=== PATIENT | male | born 1965 | race African-American/Black ===

== ENCOUNTER 2016-07-15 12:33 | Emergency (ER) | payer OTHER ==
[~2016-07-15] VITALS: Ht 188 cm; Wt 110.2 kg
[2016-07-15 13:18] LABS: BASOPHIL COUNT 0.1 K/uL (0-0.1); EOSINOPHIL (%) 0.3 % (0-5); HEMATOCRIT 48.1 % (38.0-50.0); IMMATURE GRANULOCYTE (%) 0.5 % (0.0-0.7); IMMATURE GRANULOCYTE COUNT 0.5 K/uL; LYMPHOCYTE COUNT 1.7 K/uL (1.0-2.8); MCH 28.3 PG (29.0-34.0); MCHC 34.1 G/DL (30.0-36.0); MCV 82.9 FL (86-99); MEAN PLAT.VOLUME 10.4 uM^3 (9.0-12.4); MONOCYTE (%) 7.9 % (3-12); MONOCYTE COUNT 0.8 K/uL (0-0.8); NEUTROPHIL (%) 75.2 % (45-76); PLATELET COUNT 220 K/uL (156-360); RBC DIS.WIDTH-CV 13.6 % (11.8-14.6); RBC DIS.WIDTH-SD 40.9 % (39-53); WHITE BLOOD COUNT 10.6 K/uL (4.1-10.2)
[2016-07-15 13:28] LABS: INTER. NORMALIZED RATIO 1.1; PROTHROMBIN TIME 10.9 (9.2-11.2); PTT 31.5 (25-32)
[2016-07-15 13:31] LABS: CHLORIDE 110 mEq/L (99-109); SODIUM 139 mEq/L (136-147)
[2016-07-15 13:33] LABS: GLUCOSE 102 mg/dL (70-99)
[2016-07-15 13:34] LABS: ANION GAP 7 MEQ/L (2-14)
[2016-07-15 13:36] LABS: GFR ESTIMATE (CALCULATED) > 59 mL/min/
[2016-07-15 13:37] LABS: UREA NITROGEN (BUN) 16 mg/dL (9-23)
[2016-07-15 13:40] LABS: TROP-I INTERPRETATION NEGATIVE; TROPONIN-I 0.14 ng/mL (0.0-0.30)
[2016-07-15 16:17] LABS: TROP-I INTERPRETATION NEGATIVE; TROPONIN-I 0.17 ng/mL (0.0-0.30)
[2016-07-15 20:07] VITALS: BP 116/80
== END 2016-07-15 20:08 | disposition short-term general hospital (02) ==
LOC: EME 12:33
PROVIDERS: Emergency Medicine
DX: R07.9 Chest pain, unspecified (principal); R55 Syncope and collapse; F17.200 Nicotine dependence, unspecified, uncomplicated; Z88.0 Allergy status to penicillin
CPT/HCPCS: 71010; 80048; 84484; 85025; 85610; 85730; 87040; 93005; 99281; 99285; J0456; J0696; J7050

== ENCOUNTER 2016-08-03 18:00 | Emergency (ER) | payer OTHER ==
[~2016-08-03] VITALS: Ht 185.4 cm; Wt 110.0 kg
[2016-08-03 18:35] LABS: CARBON DIOXIDE (BICARBONATE) 19.3 MEQ/L (20-31)
[2016-08-03 18:38] LABS: HEMATOCRIT 43.6 % (38.0-50.0); MCH 28.7 PG (29.0-34.0); MCHC 34.2 G/DL (30.0-36.0); RBC DIS.WIDTH-CV 13.8 % (11.8-14.6); RBC DIS.WIDTH-SD 42.2 % (39-53); RED BLOOD COUNT 5.19 M/uL (4.00-5.50)
[2016-08-03 18:48] LABS: PLATELET COUNT 335 K/uL (156-360); WHITE BLOOD COUNT 6.9 K/uL (4.1-10.2)
[2016-08-03 18:53] LABS: CHLORIDE 111 mEq/L (99-109); POTASSIUM 3.5 mEq/L (3.7-5.4); SODIUM 141 mEq/L (136-147)
[2016-08-03 18:55] LABS: GLUCOSE 115 mg/dL (70-99)
[2016-08-03 18:56] LABS: ANION GAP 13 MEQ/L (2-14)
[2016-08-03 18:57] LABS: TROP-I INTERPRETATION NEGATIVE; TROPONIN-I 0.04 ng/mL (0.0-0.30)
[2016-08-03 18:59] LABS: GFR ESTIMATE (CALCULATED) > 59 mL/min/
[2016-08-03 19:00] LABS: UREA NITROGEN (BUN) 9 mg/dL (9-23)
[2016-08-03 21:42] VITALS: BP 102/72
== END 2016-08-03 21:55 | disposition short-term general hospital (02) ==
LOC: EME 18:00
PROVIDERS: Emergency Medicine
DX: I48.91 Unspecified atrial fibrillation (principal); R07.9 Chest pain, unspecified; I34.1 Nonrheumatic mitral (valve) prolapse; I10 Essential (primary) hypertension; I25.10 Atherosclerotic heart disease of native coronary artery without angina pectoris; F17.200 Nicotine dependence, unspecified, uncomplicated
CPT/HCPCS: 71010; 80048; 82803; 83605; 83880; 84484; 85027; 87040; 93005; 99281; 99285; J1956; J2270; J2405; J3475; J7040